=== PATIENT | female | born 1970 | race Caucasian/White ===

== ENCOUNTER 2017-10-14 06:51 | Emergency (ER) | payer SELFPAY ==
[~2017-10-14] VITALS: Ht 162.6 cm; Wt 65.0 kg
[~2017-10-14 06:51] MED LIST: METH750T2 PO; MOBI15TA PO
[2017-10-14 06:56] VITALS: BP 160/76; PULSE 66; RESP 14; TEMP 97.6; O2SAT 100
[2017-10-14] MEDS ORDERED: ORPHENADRINE INJ 60 MG/2 ML AMP IM ONE (07:15)
[2017-10-14] MEDS ORDERED: KETOROLAC TROMETHAMINE 60 MG/2 ML (IM) VIAL IM ONE (07:15)
--- NOTE | 2017-10-14 07:24 | PD ---
HPI Chief Complaint: Back/ Neck Pain or Injury Time Seen by Provider: 07:05 Travel History International Travel<30 days: No Contact w/Intl Traveler<30days: No Traveled to known affect area: No History of Present Illness HPI 47-year-old female presents the emergency department with 2 day history of worsening right neck and upper shoulder pain and spasm which started after lifting up a tire due to getting a flat. She states the pain is worse this morning upon awakening and she cannot turn her head. She denies numbness and tingling in the right arm. Her pain is 10 out of 10. It is spasmodic. She has no weakness in the right arm. She has no other injury. She has no known drug allergies. PFSH Past Medical History Arthritis: Yes (rhuematoid ) Seizures: Yes Tetanus Vaccination: Unknown ?: Not Social History Alcohol Use: No Tobacco Use: No Substance Use: Yes (marijuana) Allergies-Medications (Allergen,Severity, Reaction): Coded Allergies: No Known Allergies (Unverified Adverse Reaction, Unknown, 10/14/17) Reported Meds & Prescriptions Reported Meds & Active Scripts Active Tramadol (Tramadol HCl) 50 Mg Tab 50 Mg PO Q6H PRN Flexeril (Cyclobenzaprine HCl) 10 Mg Tab 10 Mg PO TID Ibuprofen 600 Mg Tab 600 Mg PO Q8H PRN Reported Alprazolam 0.5 Mg Tab 0.5 Mg PO Q8H PRN Ibuprofen 600 Mg Tab 600 Mg PO TID Keppra (Levetiracetam) 1,000 Mg Tab 1,000 Mg PO BID Review of Systems Except as stated in HPI: all other systems reviewed are Neg General / Constitutional: No: Fever Eyes: No: Visual changes HENT: No: Headaches Cardiovascular: No: Chest Pain or Discomfort Respiratory: No: Shortness of Breath Gastrointestinal: No: Abdominal Pain Genitourinary: No: Dysuria Musculoskeletal: No: Pain Skin: No Rash Neurologic: No: Weakness Psychiatric: No: Depression Endocrine: No: Polydipsia Hematologic/Lymphatic: No: Easy Bruising Physical Exam Narrative GENERAL: Patient appears in moderate distress. SKIN: Warm and dry. Normal color. Normal turgor. No rash. HEAD: Atraumatic. Normocephalic. EYES: Pupils equal and round. No scleral icterus. No injection or drainage. ENT: No nasal bleeding or discharge. Mucous membranes pink and moist. Pharynx is clear. Airway is patent. TMs are clear bilaterally. NECK: Trachea midline. Patient is soft tissue tenderness along the right paraspinous muscles and scalenes with spasm present on the right into the trapezius area. Range of motion is limited secondary to soft tissue tenderness. There is no bony tenderness or step-off. CARDIOVASCULAR: Regular rate and rhythm. No murmurs gallops or rubs. RESPIRATORY: No accessory muscle use. Clear to auscultation. Breath sounds equal bilaterally. MUSCULOSKELETAL: Extremities without clubbing, cyanosis, or edema. No obvious deformities. Patient has muscle spasm to the right upper shoulder extending into the paraspinous, trapezius, and subscapularis. 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 NEUROLOGICAL: Awake and alert. No obvious cranial nerve deficits. Motor grossly within normal limits. Five out of 5 muscle strength in the arms and legs. Normal speech. PSYCHIATRIC: Appropriate mood and affect; insight and judgment normal. Data Data Last Documented VS Vital Signs Date Time Temp Pulse Resp B/P (MAP) Pulse Ox O2 Delivery O2 Flow Rate FiO2 10/14/17 06:56 97.6 66 14 160/76 (104) 100 Orders Orders Ketorolac Inj (Toradol Inj) (10/14/17 07:15) Orphenadrine Inj (Norflex Inj) (10/14/17 07:15) Oxycodone-Acetamin 5-325 Mg (Percocet (10/14/17 08:15) Ed Discharge Order (10/14/17 08:13) MDM Medical Decision Making Medical Screen Exam Complete: Yes Emergency Medical Condition: Yes Differential Diagnosis Cervical neck strain. Muscle spasm. Spasmodic torticollis. Narrative Course Radiographic imaging is not felt warranted at this time. Patient is given 60 mg Norflex IM as well as 60 mg Toradol IM. Patient will be treated with Flexeril 10 mg up to 3 times a day #15. Patient continued on ibuprofen 600 mg 3 times a day. Patient also given tramadol 50 mg one every 6 hours when necessary #12. Patient is to use heat, gentle stretching, and follow up if symptoms do not improve or worsen. Diagnosis Primary Impression: Cervical muscle strain Qualified Codes: S16.1XXA - Strain of muscle, fascia and tendon at neck level , initial encounter Additional Impression: Muscle spasm Referrals: [facility] Patient Instructions: General Instructions, Spasmodic Torticollis (ED) Departure Forms: Work Release Enter return to work date: Oct 16, 2017 Additional Instructions: Radiographic imaging is not felt warranted at this time. Patient is given 60 mg Norflex IM as well as 60 mg Toradol IM. Patient will be treated with Flexeril 10 mg up to 3 times a day #15. Patient continued on ibuprofen 600 mg 3 times a day. Patient also given tramadol 50 mg one every 6 hours when necessary #12. Patient is to use heat, gentle stretching, and follow up if symptoms do not improve or worsen. Med/Other Pt SpecificInfo: Prescription(s) given Scripts Tramadol (Tramadol) 50 Mg Tab 50 MG PO Q6H Y for PAIN, #12 TAB 0 Refills Prov: Derek Sheth MD 10/14/17 Cyclobenzaprine (Flexeril) 10 Mg Tab 10 MG PO TID for Muscle Spasm, #15 TAB 0 Refills Prov: Derek Sheth MD 10/14/17 Ibuprofen (Ibuprofen) 600 Mg Tab 600 MG PO Q8H Y for PAIN, #30 TAB 0 Refills Prov: Derek Sheth MD 10/14/17 Disposition: 01 DISCHARGE HOME Condition: Stable Shimon Garrett Oct 14, 2017 07:24
[2017-10-14] MEDS ORDERED: KEPP10002 PO (07:33)
[2017-10-14] MEDS ORDERED: ALPR0.5T3 PO (07:33)
[2017-10-14] MEDS ORDERED: IBUP-232 PO ×2 (07:33→07:36)
[2017-10-14] MEDS ORDERED: TRAM50TA PO (07:36)
[2017-10-14] MEDS ORDERED: CYCL10TA PO (07:36)
[2017-10-14] MEDS ORDERED: oxyCODONE/ACETAMINOPHEN 5 MG/325 MG TAB PO ONE (08:15)
== END 2017-10-14 08:39 | disposition home or self-care (01) ==
LOC: NEPD 06:51
DX: S16.1XXA Strain of muscle, fascia and tendon at neck level, initial encounter (principal); M62.838 Other muscle spasm; M06.9 Rheumatoid arthritis, unspecified; R56.9 Unspecified convulsions; X50.0XXA Overexertion from strenuous movement or load, initial encounter; Z79.899 Other long term (current) drug therapy
CPT/HCPCS: 96372; 99283; J1885; J2360